=== PATIENT | male | born 1945 | race Caucasian/White ===

== ENCOUNTER 2021-01-10 13:42 | Emergency (ER) | payer MEDICARE, SELFPAY ==
[2021-01-10 13:51] VITALS: BP 152/94; PULSE 72; RESP 14; TEMP 36.3; O2SAT 99
[2021-01-10 13:52] VITALS: BP 152/94; PULSE 66; PULSE 68; RESP 22; O2SAT 99
[2021-01-10 13:53] VITALS: PULSE 68; RESP 28; O2SAT 98
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
[2021-01-10 14:00] VITALS: PULSE 70; RESP 27; O2SAT 99
--- NOTE | 2021-01-10 14:00 | DI.RAD_ITS ---
Exam(s) XR KNEE RT 2V AP,LAT EXAM: XR KNEE RT 2V AP,LAT CLINICAL HISTORY: ankle pain. TECHNIQUE: 2D digital imaging was performed. COMPARISON: No exams were available for comparison FINDINGS: BONES: No acute fracture is present. No bony destructive lesion is seen. JOINTS: The knee is normally aligned. Moderate joint effusion. The patient has a right total knee ar throplasty. No evidence of hardware failure. SOFT TISSUE: There is prepatellar soft tissue swelling. Atherosclerosis. IMPRESSION: 1. No acute fracture or dislocation. 2. Joint effusion and prepatellar soft tissue swelling. 3. Intact right total knee arthroplasty. DATA REPOSITORY: RADIATION DOSE DELIVERED:
--- NOTE | 2021-01-10 14:00 | DI.RAD_ITS ---
Exam(s) XR ANKLE RT COMPLETE EXAM: XR ANKLE RT COMPLETE CLINICAL HISTORY: pain, lateral. TECHNIQUE: 2D digital imaging was performed. COMPARISON: No exams were available for comparison FINDINGS: BONES: There is an acute fracture of the distal fibular diaphysis 6 cm above the ankle joint. There is lateral displacement of the distal fracture the with of 1 cortex. No bony destructive lesion is s een. There is a question of a defect in the superior medial aspect of the talar dome suspicious for a n osteochondral lesion. JOINTS: The ankle mortise is normally aligned. SOFT TISSUE: Mild soft tissue swelling laterally. Atherosclerosis. IMPRESSION: Mildly displaced distal fibular fracture. DATA REPOSITORY: RADIATION DOSE DELIVERED:
--- NOTE | 2021-01-10 14:46 | DI.VRAD_ITS ---
PROCEDURE INFORMATION: Exam: XR Right Knee Exam date and time: 01/10/2021 2:10 PM Age: 75 years old Clinical indication: Pain; Knee; Right TECHNIQUE: Imaging protocol: XR Right knee. Views: 3 views. Total images: 2 COMPARISON: No relevant prior studies available. FINDINGS: Bones/joints: There is an intact total knee arthroplasty. Alignment is satisfactory. No acute fracture. There is a joint effusion. Soft tissues: There is prepatellar soft tissue swelling. IMPRESSION: Prepatellar soft tissue swelling. Knee effusion. No fracture seen. Dictated and Authenticated by: Keila Mcneil MD. Ordering:LEROY Vidal MD
--- NOTE | 2021-01-10 14:48 | DI.VRAD_ITS ---
PROCEDURE INFORMATION: Exam: XR Right Ankle Exam date and time: 01/10/2021 2:10 PM Age: 75 years old Clinical indication: Pain; Ankle; Right TECHNIQUE: Imaging protocol: XR Right ankle. Views: 3 or more views. Total images: 3 COMPARISON: No relevant prior studies available. FINDINGS: Bones/joints: There is an oblique distal fibular diaphyseal fracture with lateral displacement of the main distal fragment by 1 cortex width, no significant angulation. No dislocation. Soft tissues: There is soft tissue swelling. Small vessel calcifications noted. IMPRESSION: Nolen C distal fibular fracture. Dictated and Authenticated by: Keila Mcneil MD. Ordering:LEROY Vidal MD
== END 2021-01-10 15:15 | disposition home or self-care (01) ==
LOC: ER 15:13
PROVIDERS: Emergency Provider Emergency Medicine
DX: S82.491A Other fracture of shaft of right fibula, initial encounter for closed fracture (principal); V86.55XA Driver of 3- or 4- wheeled all-terrain vehicle (ATV) injured in nontraffic accident, initial encounter
CPT/HCPCS: 99284; 73560; 73610; 99283